=== PATIENT | male | born 1980 | race Caucasian/White ===

== ENCOUNTER 2022-02-26 13:50 | Outpatient (CLI) | payer OTHER ==
[2022-02-26 14:38] VITALS: BP 130/78
--- NOTE | 2022-02-26 14:38 | SLEEP CARE CONSULTATION ---
Information from patient questionnaire entered by Antonio Humphrey. I have reviewed and concur with the information entered by Antonio Humphrey. This document represents the service I personally performed and the decisions made by me, Rachel Contreras ARNP. History of Present Illness Service Date and Time: 02/26/2022 1350 Reason for Visit: New patient Chief Complaint: reports: Unrefreshed sleep, Snoring, Excessive daytime sleepiness, Observed pauses in breathing, Fatigue, Frequent awakenings at night Date of Onset: DECEMBER 2019 Usual bedtime: 8PM Time it takes to fall asleep: INSTANTLY Snores at night: Yes Observed to quit breathing while asleep: Yes Sleeps alone due to snoring: Yes (sometimes if keeps waking him up) Number of times waking at night: 2-3 Reasons for waking at night: reports: Bathroom, Other (UNKNOWN). denies: Choking, Snoring, Gasping for air Toss, Turn, or Twitch while sleeping: Yes Recalls having dreams: No Usually gets out of bed at: 530AM Feels refreshed in the morning: No Morning headache: No Sleepy or fatigued during the day: Yes Ever fallen asleep while driving: No Takes day naps: Yes (would take daily if could; none right now due to home life) Dreams during day naps: No Prior sleep studies: No Additional HPI information: I had the pleasure of seeing GORAN CANTOR today regarding the possibility of him having a sleep disorder. His current complaints are unrefreshed sleep, snoring, excessive daytime sleepiness, observed pauses in breathing, fatigue and frequent night awakenings. Patient tells me that he started noticing that he did not sleep well and was always fatigued in about 2019. He states his tells him he is snoring very loud and is gasping for air in his sleep. He will sometimes sleep separate from his because she will keep waking him up because he is snoring loudly and waking her up. He wakes up 2-3 times a night for unknown reasons or need of the bathroom. He does not wake up feeling rested and he is tired all the time during the day. His has noted him to have pauses in breathing when he is sleeping as well. He is here because his wants him to get this checked out. 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 Patient is and lives in [place]. Have you smoked in the past 12 months: No Alcohol use: Yes Alcohol amount and frequency: 1-2 BEERS TWICE A WEEK Caffeine use: Yes Caffeine amount and frequency: 3-4 DRINKS 3-4 TMES PER DAY Family History Family history of sleep disordered breathing: No Allergies and Home Medications Known drug allergies: No Drug allergies reviewed: Yes (NKDA) Home medication list reviewed: Yes (no daily medications) Review of Systems Weight gain over past 5 years: 7-10 Weight loss over past 5 years: 7-20 Cardiovascular: denies: high blood pressure Gastrointestinal: reports: difficulty swallowing. denies: heartburn Neurological: denies: headaches, head trauma Psychiatric: denies: anxiety, depression Ear/Nose/Throat: reports: wisdom teeth removed. denies: dry mouth/throat, tonsillectomy Endocrine: reports: sluggishness Immunologic: reports: allergies to food or environment (seasonal allergies - takes claritin for it) Physical Exam Vital signs obtained and entered by: ANTONIO Boateng MA Blood Pressure: 130/78 (left arm) Cuff size: regular Heart Rate: 67 O2 Saturation: 94 Height: 6 ft 1 in Weight: 229 lb 12.8 oz Body Mass Index: 30.3 BMI Classification: Obese Neck circumference: 17.25 (inches) Nostrils: patent to airflow Mouth and throat: narrow oropharynx Soft palate: long Hard palate: normal Uvula: long Uvula visualization: 25% Mallampati Class III Tongue: enlarged in size with teeth crump on lateral edges Tonsils: 2+ Neck: normal w/o lymphadenopathy or thyromegaly Heart: regular rate and rhythm Lungs: clear bilaterally Impression and Plan 1. Suspected Obstructive Sleep Apnea-Hypopnea Syndrome, as suggested by a history of loud and irregular snoring, observed cessation of breath while asleep, gasping or choking in sleep, unrefreshed sleep, frequent night awakenings, cognitive impairment, and excessive daytime sleepiness. Narrow oropharynx and obesity are common predisposing factors for obstructive sleep apnea-hypopnea syndrome. I recommend proceeding to polysomnography to confirm the diagnosis and to assess severity. If the patient has significant sleep disordered breathing, a manual CPAP titration study will also be performed to find the optimal treatment pressure. I informed the patient of what the sleep studies involve and after some discussion, obtained agreement to proceed. The pathophysiology of obstructive sleep apnea-hypopnea syndrome was discussed with the patient and health risks of cardiovascular and cerebrovascular disease if not treated. 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 Patient agreed to plan. * Schedule polysomnography * Avoid long distance driving or driving when feeling sleepy. * Avoid alcohol, sedative and muscle relaxant around bedtime. * Attempt to lose weight. * Review instructions provided by trained office staff on how to prepare for the sleep study. * Return for follow-up after sleep study completed. Counseling Topics: Weight loss health impact Visit Type: In Office Time Spent with Patient (minutes): 30 Provider Statement: I spent 100% of the Face to Face Visit with the patient with greater than 50% spent counseling the patient and coordination of care.
== END 2022-02-26 13:51 | disposition home or self-care (01) ==
LOC: SC 13:50
PROVIDERS: ATTEND Nurse Practitioner Family
DX: R06.83 Snoring (principal); R06.81 Apnea, not elsewhere classified; G47.8 Other sleep disorders; R41.89 Other symptoms and signs involving cognitive functions and awareness; G47.10 Hypersomnia, unspecified; E66.9 Obesity, unspecified; Z68.30 Body mass index [BMI] 30.0-30.9, adult
CPT/HCPCS: 99203; 99212

== ENCOUNTER 2022-03-20 19:57 | Outpatient (CLI) | payer OTHER | END 2022-03-20 19:58 | disposition home or self-care (01) | LOC: SC 19:57 | PROVIDERS: ATTEND Nurse Practitioner Family | DX: R06.83 Snoring (principal); G47.8 Other sleep disorders; R06.81 Apnea, not elsewhere classified; G47.10 Hypersomnia, unspecified; R53.83 Other fatigue | CPT/HCPCS: 95810 ==

== ENCOUNTER 2022-03-27 13:29 | Outpatient (CLI) | payer OTHER ==
[2022-03-27 14:23] VITALS: BP 136/76
--- NOTE | 2022-03-27 14:23 | SLEEP CARE CONSULTATION ---
Information from patient questionnaire entered by Toña Humphrey. I have reviewed and concur with the information entered by Toña Humphrey. This document represents the service I personally performed and the decisions made by , Rachel Contreras ARNP. History of Present Illness Service Date and Time: 03/27/2022 1329 Initial [place] Sleepiness Scale score: 12 (01/29/22) Current [place] Sleepiness Scale score: 13 Additional HPI information: GORAN CANTOR returns for follow up and results of the recently performed polysomnography. The patient was informed of the following findings: No significant sleep disordered breathing with an average AHI of 2.2 and billie oxygen saturation of 89%. I explained the pathophysiology behind obstructive sleep apnea. Patient does not have sleep apnea and was advised how weight gain could increase the risk of developing sleep apnea in the future. I strongly encouraged the patient to lose weight. Patient has light to moderate snoring. Snoring can be reduced by weight loss. Weight loss is best achieved with diet consult. Patient instructed to contact PCP for referral. Snoring can also be treated with an oral appliance from a dentist. Advised to check insurance coverage. In addition, an ENT evaluation can be do to see if other treatment is indicated. Patient counseled not drink alcohol less than 4 hours before bedtime as it can increase snoring and apnea. Patient was cautioned about risks of drowsy driving until sleepiness symptoms resolve. Sleep Study - Results Type of Sleep Study: Polysomnography (COMPLETED 03-20-22) Prior sleep studies: No Polysomnography/Home Sleep Study results: IMPRESSION: The quality of the study is good. The patient had normal sleep efficiency. The sleep architecture was normal as well. Respiratory monitoring showed no significant sleep disordered breathing (AHI = 2.2) orhypoxia (billie oxygen saturation of 89%). The patient slept adequately in supine position (supine AHI = 3.2; non-supine = 1.44). Snore was infrequent and light to moderate in intensity. There was no significant periodic leg movement of sleep. Cardiac rhythm was normal sinus rhythm without significant arrhythmia. No abnormal behavior (parasomnia) observed during the night. Allergies and Home Medications Drug allergies reviewed: Yes (NKDA) Home medication list reviewed: Yes (no changes) Review of Systems Review of systems same as previous: Yes (no changes) Physical Exam Vital signs obtained and entered by: Don Valentin, group art supervisor Pressure: 136/76 (left) Cuff size: regular Heart Rate: 81 O2 Saturation: 96 Height: 6 ft 1 in Weight: 229 lb Body Mass Index: 30.2 BMI Classification: Obese Impression and Plan Snoring but no significant sleep disordered breathing. Patient advised that often weight loss will reduce snoring as well as apnea risk. An oral appliance can also be used for snoring. This would require a dental consultation. Patient cautioned not to use other online appliances as can cause bite issues. A list of accredited dentists in [facility] and one local dentist who makes oral appliances is available in office. Patient is advised to check if insurance will cover. An ENT consult can also be helpful to determine if any other treatment is an option. * Attempt to lose weight * Avoid alcohol consumption near bedtime * The patient is cautioned about driving until sleepiness is completely resolved. * Return as needed for follow up. Counseling Topics: Weight loss health impact Visit Type: In Office Time Spent with Patient (minutes): 10 Provider Statement: I spent 100% of the Face to Face Visit with the patient with greater than 50% spent counseling the patient and coordination of care.
== END 2022-03-27 13:30 | disposition home or self-care (01) ==
LOC: SC 13:29
PROVIDERS: ATTEND Nurse Practitioner Family
DX: R06.83 Snoring (principal); E66.9 Obesity, unspecified; Z68.30 Body mass index [BMI] 30.0-30.9, adult
CPT/HCPCS: 99212